=== PATIENT | male | born 2000 | race Hispanic/Latino ===

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

== ENCOUNTER 2022-05-26 23:08 | Emergency (ER) | payer OTHER ==
[~2022-05-26] VITALS: Ht 170.2 cm; Wt 67.2 kg
[~2022-05-26 23:08] MED LIST changes: +PERCOCET 5/325M1 TAB PO
[2022-05-26 23:14] VITALS: BP 140/77
[2022-05-26 23:33] LABS: IMMATURE GRANULOCYTES 0.4 % (0.0-5.0); MEAN CELL VOLUME 86.7 fL CALC (80.0-100.0); MEAN CORPUSCULAR HGB 29.6 pG CALC (26.0-32.0); MEAN CORPUSCULAR HGB CONC 34.2 g/dL CAL (32.0-36.0); NEUT# 12.83 thou/uL (1.82-7.42); RED BLOOD COUNT 5.33 mill/uL (4.70-6.10); RED CELL DISTRI WIDTH 12.6 % (11.5-15.5)
[2022-05-26 23:35] LABS: HEMATOCRIT 46.2 % (39.0-50.0); HEMOGLOBIN 15.8 g/dl (14.0-18.0)
[2022-05-26 23:52] LABS: ALBUMIN 4.9 g/dL (3.2-5.0); ALKALINE PHOSPHATASE 86 u/l (38-126); ANION GAP 15 (6-22 (CALC)); BILIRUBIN, TOTAL 0.3 mg/dL (0.0-1.4); BUN 11 mg/dL (9-20); BUN/CREATININE RATIO 11 (12-20 (CALC)); CARBON DIOXIDE 28 mmol/l (22-30); CHLORIDE 102 mmol/l (95-108); ETHYL ALCOHOL 238 mg/dl (0-30); GFR FOR AFR.AMER. > 60 ML/MIN (>=60 (CALC)); GFR OTHER RACES > 60 ML/MIN (>=60 (CALC)); POTASSIUM 3.8 mmol/l (3.5-5.1); SGOT/AST 34 u/l (17-59); SODIUM 140 mmol/l (137-146); TOTAL PROTEIN 8.7 g/dL (6.3-8.2)
[2022-05-26 23:55] VITALS: BP 131/78
[2022-05-27] VITALS: BP 119/73
[2022-05-27 00:15] VITALS: BP 123/77
[2022-05-27 00:30] VITALS: BP 139/80
[2022-05-27 00:45] VITALS: BP 134/74
[2022-05-27 01:00] VITALS: BP 119/65
[2022-05-27 01:15] VITALS: BP 123/65
[2022-05-27] MEDS ORDERED: NAPROXEN500 MG PO (01:16)
[2022-05-27] MEDS ORDERED: AMOXICILLIN500 MG PO (01:16)
== END 2022-05-27 01:45 | disposition home or self-care (01) | DRG 605 ==
LOC: ED 23:08
PROVIDERS: Emergency Medicine
PROC: 0HQ1XZZ Repair Face Skin, External Approach (ICD-10-PCS; principal; 2022-05-27)
DX: S01.81XA Laceration without foreign body of other part of head, initial encounter (principal); F10.10 Alcohol abuse, uncomplicated; V86.55XA Driver of 3- or 4- wheeled all-terrain vehicle (ATV) injured in nontraffic accident, initial encounter; Y93.I9 Activity, other involving external motion; Y92.009 Unspecified place in unspecified non-institutional (private) residence as the place of occurrence of the external cause; Z20.822 Contact with and (suspected) exposure to COVID-19

== ENCOUNTER 2022-06-04 11:56 | Emergency (ER) | payer OTHER ==
[~2022-06-04 11:56] MED LIST changes: +NAPROXEN500 MG PO
== END 2022-06-04 12:09 | disposition left against medical advice (07) | DRG 951 ==
LOC: ED 11:56 → LWOBS 12:02
DX: Z53.21 Procedure and treatment not carried out due to patient leaving prior to being seen by health care provider (principal)